=== PATIENT | male | born 1970 | race African-American/Black ===

== ENCOUNTER → 2016-06-17 | Outpatient (CLI) | payer OTHER ==
[~2016-06-17] MED LIST: ASPIRIN EC325 M1 PO; LISINOPRIL2.5 MG PO; LOPRESSOR 50 MG50 M1 PO; PEPCID AC20 M1 PO; PREDNISONE 20 M20 M1 PO; SIMVASTATIN40 MG PO
--- NOTE | ~2016-06-17 | EXE ---
[facility] [address] STRESS ECHOCARDIOGRAM Name: ESPERANZA ZHAO II Room #: [facility] [id number] Admission: 06/17/16 Attend Phys: Angel Fontenot MD Discharge: Date of : 70 Date of Service: 06/17/16 1121 Report #: [id number] THIS REPORT FOR: //name// APPROVED REPORT Exam: Stress Echocardiogram Reason for Exam: CAD Patient Location: Out-Patient Stress Nurse: Poonam Dao RN HR: 80 bpm Rhythm: NSR Medical History Medical History: CAD s/p CABG Cardiac Risk Factors: HTN, FHX of CAD, Hyperlipidemia Previous Cardiac Procedures: CABG Exercise History: Physically active Procedure The patient underwent an Exercise Stress Test using the Devang Protocol. Blood pressure, heart rate, and EKG were monitored. An Echocardiogram was performed by natural gas technician in four stages in quad fashion. At peak stress, four selected images were obtained and placed side by side with resting images for comparison. Testing Details Test: Exercise stress testing was performed using a Devang protocol. HR Resting HR: 80 bpm Max Heart Rate (APMHR): 175 bpm Max HR Achieved: 171 bpm Target HR (85% APMHR): 148 bpm % of APMHR: 97 Recovery HR: 102 bpm HR response to stress: Normal HR response to stress BP Resting BP: 138/92 mmHg Max BP: 230/110 mmHg Recovery BP: 162/96 mmHg ECG Resting ECG: Sinus Rhythm, nonspecific ST-T abnormalities Stress ECG: Sinus Rhythm, nonspecific ST-T abnormalities [facility] [address] [place] [address] STRESS ECHOCARDIOGRAM Name: ESPERANZA ZHAO II Room #: REG [facility]#: [id number] Admission: 06/17/16 Attend Phys: Angel Fontenot MD Discharge: Date of : 70 Date of Service: 06/17/16 1121 Report #: [id number] ST Change: Non-ischemic Clinical Reason for Termination: Maximal effort Exercise duration: 9 min Exercise capacity: 10.4 METs Overall Exercise Capacity for Age: Average Pre-Stress Echo The resting Echocardiogram showed normal left ventricular contractility with an estimated Ejection Fraction of about 55-60%. Post-Stress Echo The stress Echocardiogram showed normal left ventricular contractility with an estimated Ejection Fraction of about 65-70%. Clinical Normal augmentation of myocardial wall segments using a 17 segment model. Conclusion Clinical Response: Non-ischemic Stress ECG Response: Non-ischemic Stress Echo Images: Non-ischemic No clinical, EKG or echocardiographic evidence for ischemia. No prior study available for comparison. Other Information Study Quality: Good <Conclusion> No clinical, EKG or echocardiographic evidence for ischemia. <ELECTRONICALLY SIGNED> By: Angel Fontenot MD 06/17/16 1121 1121 1121 Angel Fontenot MD /JOSEPHINE
== END ==
LOC: CV 08:32
DX: I25.10 Atherosclerotic heart disease of native coronary artery without angina pectoris (principal)